=== PATIENT | male | born 1975 | race Caucasian/White ===

== ENCOUNTER 2017-03-30 12:51 | Emergency (ER) | payer OTHER ==
[2017-03-30 13:10] VITALS: BP 138/80
--- NOTE | 2017-03-30 14:23 | ER Document Report ---
HPI - HPI Patient complains to provider of: Twisted right ankle Onset: This morning - 9 AM Onset/Duration: Sudden Pain Level: 4 Context: 41-year-old male twisted his right ankle when he slipped on the ice while wearing the boot this morning while going to work. No previous fracture. He is able to bear weight but it is a deep internal bone pain. Associated Symptoms: None Exacerbated by: Movement, Walking Relieved by: Denies Similar symptoms previously: No Recently seen / treated by doctor: No - ROS ROS below otherwise negative: Yes Systems Reviewed and Negative: Yes All other systems reviewed and negative Past Medical History - General Information source: Patient - Social History Smoking Status: Unknown if Ever Smoked Frequency of alcohol use: None Drug Abuse: None Lives with: Family Family History: Reviewed & Not Pertinent Renal/ Medical History: Reports: Hx Kidney Stones Surgical Hx: Negative - Immunizations Hx Diphtheria, Pertussis, Tetanus Vaccination: Yes Vertical Provider Document - CONSTITUTIONAL Agree With Documented VS: Yes Exam Limitations: No Limitations - INFECTION CONTROL TRAVEL OUTSIDE OF THE [place] IN LAST 30 DAYS: No - HEENT HEENT: Normocephalic - NECK Neck: Supple - RESPIRATORY O2 Sat by Pulse Oximetry: 96 - MUSCULOSKELETAL/EXTREMETIES Musculoskeletal/Extremeties: Tender - medial and lateral malleolus, very swollen , 2+ DP, non tender heel squeeze and foot., Edema Notes: had some numbness to foot earlier, gone now - NEURO Level of Consciousness: Awake, Alert, Appropriate - DERM Integumentary: Warm, Dry Course - Re-evaluation Re-evalutation: 03/30/17 15:19 X-ray is negative when I looked at it as well as the radiologist interpreted as negative. I will put him in a posterior ankle splint with crutches and Motrin for pain - Vital Signs Vital signs: Temp Pulse Resp BP Pulse Ox 98.1 F 78 18 138/80 H 96 03/30/17 13:09 03/30/17 13:09 03/30/17 13:09 03/30/17 13:09 03/30/17 13:09 Procedures - Immobilization Right Ankle Time completed: 16:00 Pre-Proc Neuro Vasc Exam: Normal Immobilizer type: Ankle stirrup Performed by: PCT Post-Proc Neuro Vasc Exam: Normal Alignment checked and good: Yes Discharge - Discharge Clinical Impression: Right ankle sprain Condition: Good Disposition: HOME, SELF-CARE Instructions: Ankle Exercise Program ([facility]), Ankle Stirrup Splint ([facility]), Anti- Inflammatory Medication ([facility]), Use of Crutches ([facility]), Ice & Elevation ([facility]), Splint Precautions ([facility]), Sprained Ankle ([facility]), Temporary Splint ([facility]) Additional Instructions: splint for a week for comfort crutches elevate see orthopedic doctor if pain and swelling persists to er any concerns Prescriptions: Ibuprofen [Motrin 800 mg Tablet] 800 mg PO Q8HP PRN #30 tablet PRN Reason: Referrals: JOLEEN LUKE MD [ACTIVE STAFF] - Follow up as needed
--- NOTE | 2017-03-30 15:07 | RADIOLOGY REPORT (SQ) ---
EXAM DESCRIPTION: ANKLE RIGHT COMPLETE COMPLETED DATE/TIME: 03/30/2017 2:56 pm REASON FOR STUDY: twisted, suspect fx COMPARISON: None. NUMBER OF VIEWS: Three views. TECHNIQUE: AP, lateral, and oblique radiographic images acquired of the right ankle. LIMITATIONS: None. FINDINGS: MINERALIZATION: Normal. BONES: No acute fracture or dislocation. No worrisome bone lesions. JOINTS: No effusions. SOFT TISSUES: No soft tissue swelling. No foreign body. OTHER: No other significant finding. IMPRESSION: NEGATIVE STUDY OF THE RIGHT ANKLE. NO RADIOGRAPHIC EVIDENCE OF ACUTE INJURY. TECHNICAL DOCUMENTATION: JOB ID: [id number] [employer]- All Rights Reserved
[2017-03-30] MEDS ORDERED: IBUPROFEN 800 MG TABLET PO ONE (15:47)
== END 2017-03-30 15:59 | disposition home or self-care (01) ==
LOC: ER 12:51
PROC: 2W3QX1Z Immobilization of Right Lower Leg using Splint (ICD-10-PCS; principal; 2017-03-30)
DX: S93.401A Sprain of unspecified ligament of right ankle, initial encounter (principal); M25.571 Pain in right ankle and joints of right foot; X50.1XXA Overexertion from prolonged static or awkward postures, initial encounter
CPT/HCPCS: 99283; 73610; 29515; L1902; L4350